=== PATIENT | male | born 1975 | race Caucasian/White ===

== ENCOUNTER 2023-12-12 22:46 | Emergency (ER) | payer OTHER ==
[2023-12-12] MEDS ORDERED: VERSED 5 MG/5 ML IV ONE (22:47)
[2023-12-12] MEDS ORDERED: Zemuron 100 MG/10 ML IV ONE (22:47)
[2023-12-12] MEDS: XYLOCAINE 1% HCL 20 ML MDV IJ ONE (22:50)
[2023-12-12] MEDS ORDERED: Sodium Chloride 0.9% 1000 ML 1,000 ML ONE (22:57)
[2023-12-12] MEDS ORDERED: Sodium Chloride 0.9% 250 ML 0 ML IV ONE (23:14)
[2023-12-12] MEDS ORDERED: Versed 50 MG/ 10 Ml MDV ONE ×2 (23:14→23:24)
[2023-12-12 23:15] LABS: Absolute Neutrophil Ct (ANC) 3.49 x10^3/uL (1.78-5.38); BASOPHIL % 0.4 % (0.2-1.2); Basophil (Absolute #) 0.02 x10^3/uL (0.01-0.08); Eosinophil % 0.6 % (0.8-7.0); Eosinophil (Absolute #) 0.03 x10^3/uL (0.04-0.54); Hematocrit 24.8 % (40.1-51.0); Hemoglobin 8.1 g/dL (13.7-17.5); Lymphocytes % 19.1 % (21.8-53.1); Mean Cell Volume 97.3 fL (79.0-92.2); Mean Corpuscular Hemoglobin 31.8 pg (25.7-32.2); Mean Corpuscular Hgb Concent. 32.7 g/dL (32.3-36.5); Mean Platelet Volume 9.7 fL (9.4-12.4); Monocyte (Absolute #) 0.27 x10^3/uL (0.30-0.82); Monocytes % 5.7 % (5.3-12.2); Neutrophil % 74.2 % (34.0-67.9); Platelet Count 175 x10^3/uL (163-337); Red Blood Count 2.55 x10^6/uL (4.63-6.08); Red Cell Distribution Width 11.9 % (11.6-14.4); White Blood Count 4.7 x10^3/uL (4.23-9.07)
[2023-12-12 23:22] LABS: Appearance Cloudy (Clear); Bacteria None Seen /HPF (None Seen); Bilirubin Small (Negative); Blood Negative (Negative); Epithelial Cells None Seen /HPF (None Seen); Glucose, Urine Negative (Negative); Ketones 80 (Negative); Leukocyte Esterase Small (Negative); Nitrite Negative (Negative); Ph 5.5 (4.6-8.0); Protein,Urine Dip 30 (Negative); RBC 0-2 /HPF (0-5); Specific Gravity >=1.030 (1.005-1.030)
[2023-12-12] MEDS ORDERED: Sodium Chloride 0.9% 250 ML 250 ML IV ONE (23:24)
--- NOTE | 2023-12-12 23:33 | ERPHSYRPT ---
- History of Present Illness Time Seen by Provider: 12/12/23 22:50 Source: patient, EMS Exam Limitations: clinical condition Physician History: This is a 48-year-old white male patient who is a resident at a local halfway and was brought into the emergency department by the bead trimmer service secondary to a suicide attempt with cutting both sides of his neck with a sharp razor blade and's swallowing to batteries. He also stated that he swallowed the razor blade after cutting himself. Patient had significant blood loss at the scene and had pressure held to the sites with a cervical collar. Patient did not fall or hit his head or have any neck trauma. The cervical collar was only to hold the bandages in place with pressure circumferentially. Additional history was provided by the security at the bedside from the halfway as well as the paramedics. Patient has no known drug allergies. The security at the halfway knows this patient well and stated that earlier in the week he did swallow a razor blade and passed it rectally during the week. Patient states that he wants to kill himself. Timing/Duration: today Severity: moderate Associated Symptoms: denies symptoms Travel Risk - International Travel Have you traveled outside of the country in past 3 weeks: No - Emerging Infectious Disease Are you exhibiting symptoms associated with any current EIDs: No - Review of Systems Constitutional: No Symptoms Eyes: No Symptoms Ears, Nose, & Throat: No Symptoms Respiratory: No Symptoms Cardiac: No Symptoms Abdominal/Gastrointestinal: No Symptoms Genitourinary Symptoms: No Symptoms Musculoskeletal: No Symptoms Skin: No Symptoms Neurological: No Symptoms Psychological: Other (Suicidal attempt) Hematologic/Lymphatic: No Symptoms Immunological/Allergic: No Symptoms All Other Systems: Reviewed and Negative - Past Medical History Pertinent Past Medical History: No (Unsure/unclear) - Past Surgical History Past Surgical History: No (Sure/unclear) - Physical Exam General Appearance: mild distress, alert, anxiety Eye Exam: PERRL/EOMI, eyes nml inspection Ears, Nose, Throat Exam: normal ENT inspection, moist mucous membranes, other (No visible oropharyngeal lacerations or accumulation of blood in the oral cavity on visual inspection) Neck Exam: other (There are two 5 cm skin lacerations in total to the lateral aspect of his neck bilaterally. No obvious subcutaneous hematoma. No crepitance. The left skin laceration site appears to penetrate the skin to the subQ layer while the R side penetrates through the subQ layer. Venous blood Bilat) Respiratory Exam: normal breath sounds, lungs clear, airway intact, No chest tenderness, No respiratory distress Cardiovascular Exam: tachycardia Gastrointestinal/Abdomen Exam: soft, normal bowel sounds, No tenderness, No guarding Rectal Exam: not done Back Exam: normal inspection, normal range of motion, No CVA tenderness, No vertebral tenderness Extremity Exam: normal inspection, normal range of motion, pelvis stable Neurologic Exam: oriented x 3, cooperative, isotope technician II-XII nml as tested, confusion, slurred speech, other (Slurred speech) - Course Nursing assessment & vital signs reviewed: Yes Ordered Tests: Active Orders 24 hr Category Date Time Status CHEST 1 VIEW (PORTABLE) Routine Exams 12/12/23 23:01 Ordered KUB Routine Exams 12/12/23 23:01 Ordered NECK SOFT TISSUE Routine Exams 12/12/23 23:01 Ordered CBC W DIFF Routine Lab 12/12/23 23:00 Completed CMP Routine Lab 12/12/23 23:00 Received ETHYL ALCOHOL Routine Lab 12/12/23 23:00 Received UA W/RFX UR CULTURE Routine Lab 12/12/23 23:00 Received Urine Triage Profile Routine Lab 12/12/23 23:00 Received Medication Summary Discontinued Medications Generic Name Dose Route Start Last Admin Trade Name Genesis PRN Reason Stop Dose Admin Sodium Chloride Confirm 12/12/23 22:57 Sodium Chloride 0.9% 1000 Ml Administered 12/12/23 22:58 Dose 1,000 mls @ ud .ROUTE .STK-MED ONE Sodium Chloride Confirm 12/12/23 23:14 Sodium Chloride 0.9% 250 Ml Administered 12/12/23 23:15 Dose 250 mls @ ud IV .STK-MED ONE Midazolam HCl Confirm 12/12/23 23:14 Midazolam Hcl 50 Mg/10 Ml Vial Administered 12/12/23 23:15 Dose 50 mg .ROUTE .STK-MED ONE Lab/Rad Data: Laboratory Result Diagrams 12/12/23 23:00 Laboratory Results 12/12/23 Range/Units 23:00 WBC 4.7 (4.23-9.07) x10^3/uL RBC 2.55 L (4.63-6.08) x10^6/uL Hgb 8.1 L (13.7-17.5) g/dL Hct 24.8 L (40.1-51.0) % MCV 97.3 H (79.0-92.2) fL MCH 31.8 (25.7-32.2) pg MCHC 32.7 (32.3-36.5) g/dL RDW 11.9 (11.6-14.4) % Plt Count 175 (163-337) x10^3/uL MPV 9.7 (9.4-12.4) fL Gran % 74.2 H (34.0-67.9) % Immature Gran % (Auto) 0.0 L (0.001-0.429) % Nucleat RBC Rel Count 0.0 (0.00-0.2) % Eos # (Auto) 0.03 L (0.04-0.54) x10^3/uL Immature Gran # (Auto) 0.00 L (0.001-0.031) x10^3u/L Absolute Lymphs (auto) 0.90 L (1.32-3.57) x10^3/uL Absolute Monos (auto) 0.27 L (0.30-0.82) x10^3/uL Absolute Nucleated RBC 0.00 (0.00-0.012) x10^3u/L Lymphocytes % 19.1 L (21.8-53.1) % Monocytes % 5.7 (5.3-12.2) % Eosinophils % 0.6 L (0.8-7.0) % Basophils % 0.4 (0.2-1.2) % Absolute Granulocytes 3.49 (1.78-5.38) x10^3/uL Basophils # 0.02 (0.01-0.08) x10^3/uL - Progress Progress: re-examined Progress Note: 12/12/23 23:34 My medical decision making and the assignment of high complexity of this patient's medical issue today is based on review of the patient's past medical history, review the patient's medication list, reviewed patient drug allergy list, history present illness and physical findings on examination. The workup included anterior neck, PA chest, KUB x-rays to evaluate for intrathoracic or intra-abdominal foreign body. We also ordered a CBC, CMP, urine drug screen, urine drug triage and arterial blood gas. We placed a Bueno catheter as well. As we were evaluating this patient, his initial vital signs show tachycardia with a fairly normal blood pressure. His oxygen saturation was in the 95 to 100% range. However, the CO2 monitor was showing rising CO2 levels and the patient was becoming more lethargic. Therefore, we opted to go ahead and mechanically ventilate him. RT used a glide a scope to intubate this patient and a 7-1/2 ET tube was placed without difficulty under visualization. The post chest x-ray shows the tip of the ET tube above the bifurcation. I interpreted this x-ray on my own. The KUB film shows no evidence of any obstruction or obvious free air. There appears to be 4 AAA batteries within the lumen of the intestinal tract. Appears to be beyond the gastric lumen. I do not see evidence of a razor blade. I am assuming this is radiopaque type of razor blade. I loosely approximated the 2 laceration sites to help provide some hemostasis. I realized that these wounds will be explored higher level of care but this way that the patient has his area rate controlled and we can place pressure dressings on the sites. [facility] [place] [facility] accepted this patient. The specific trauma surgeon excepting this patient is Dr. Alexander Mancilla. We are awaiting the flight crew to transport this patient. Counseled pt/family regarding: lab results, diagnosis, rad results Medical Desision Making - Independent Historian Additional History obtained from: Milling Machine Set Up Operator/EMT - Diagnostic Testing Diagnostic test were ordered, analyzed, and reviewed by me: Yes Radiological Interpretation: Interpreted by me - Risk of complications The pt has a high risk of morbidity or mortality based on: Decision regarding hospitilization or escalation of hosp level of care - Departure Departure Disposition: Transfer Clinical Impression: Suicide attempt, Simple laceration of neck, Intentional ingestion of batteries Condition: Serious Critical Care Time: Yes Critical Care Time(excluding separately billable procedures): Critical 30-74 mins (40 minutes)
[2023-12-12 23:36] LABS: Amphetamine,Urine NEGATIVE (NEGATIVE); Barbiturate,Urine NEGATIVE (NEGATIVE); Benzodiazepine,Urine NEGATIVE (NEGATIVE); Cocaine,Urine NEGATIVE (NEGATIVE); Methadone,Urine NEGATIVE (NEGATIVE); Opiate,Urine NEGATIVE (NEGATIVE); PCP,Urine NEGATIVE (NEGATIVE); THC,Urine NEGATIVE (NEGATIVE)
[2023-12-12] MEDS ORDERED: ROCEPHIN 1 GM / 100 ML NaCl 1 GM/100 ML IVPB IV ONE (23:47)
[2023-12-12] MEDS ORDERED: Adacel Vial IM ONE (23:54)
[2023-12-13 00:07] LABS: ABO TYPING O; Antibody Screen NEGATIVE (NEGATIVE); RH TYPING POSITIVE
[2023-12-13] MEDS ORDERED: Propofol 1000 mg/100 ml Bottle 100 ML IV ONE (00:11)
[2023-12-13] MEDS ORDERED: Propofol 1000 mg/100 ml Bottle 100 ML IV PRN (00:11)
[2023-12-13 00:13] VITALS: BP 113/87; PULSE 70; RESP 20; TEMP 97.2; O2SAT 99
[2023-12-13 00:15] LABS: A-aADO2 344; ABG HEMOGLOBIN 14.5; ABG POTASSIUM 3.9 (3.5-5.1); ABG SITE RIGHT RADIAL; ALLEN TEST OK? YES; ARTERIAL BLOOD GAS BASE EXCESS -1.7 (-2.0-2.0); ARTERIAL BLOOD GAS FIO2 100 %; ARTERIAL BLOOD GAS PCO2 34 mmHg (35-45); ARTERIAL BLOOD GAS PO2 327 mmHg (75-100); ARTERIAL BLOOD GAS pH 7.42 (7.35-7.45); HCO3- 22.1 (22-28); HGB O2 SAT 97.9 g/dF (94-100); Methhemoglobin 1.1 % (1.4-1.5); paO2 pAO1 0.49
[2023-12-13 00:25] LABS: ALBUMIN 3.8 g/dL (3.5-5.0); ALKALINE PHOSPHATASE 82 U/L (38-126); ANION GAP 12.9 MEQ/L (5-15); BLOOD UREA NITROGEN 14 mg/dL (9-20); CHLORIDE 107 mmol/L (98-107); Calcium 8.3 mg/dL (8.4-10.2); Carbon Dioxide 23 mmol/L (22-30); ETHYL ALCOHOL < 10 mg/dL (0-10); Glucose 105 mg/dL (74-106); Potassium 3.8 mmol/L (3.5-5.1); SGOT/AST 19 U/L (17-59); SGPT/ALT 14 U/L (0-50); SODIUM 139 mmol/L (135-145); Total Protein 6.7 g/dL (6.3-8.2)
--- NOTE | 2023-12-13 03:15 | XRAY ---
CLINICAL HISTORY: FB COMPARISON: No prior studies available for comparison. TECHNIQUE: X-ray images of the chest were obtained in anterioposterior AP portable projection. FINDINGS: Endotracheal tube insitu with tip located 3.7cm from myles. Pulmonary Parenchyma: Prominent hilar and perihilar vascular markings. Possible mild left lower zone infiltrate. No evidence of pleural effusion or pleural thickening. Heart and Mediastinum: Heart size cannot be commented due to AP projection. No mediastinal widening or masses. No hilar or mediastinal lymphadenopathy. Bony Thorax: Old-headed fracture mid shaft of left clavicle. The bony thorax appears intact without fractures or deformities. Soft Tissues: Soft tissues overlying the chest wall are unremarkable. IMPRESSION: 1. Endotracheal tube insitu with tip located 3.7cm from myles. 2. Prominent hilar and perihilar vascular markings, suggestive of mild pulmonary congestion. 3. Possible mild infiltrate left lower zone. 4. No Foreign body was noted in chest area. Electronically Signed by: Elissa Bennett MD. (12/13/2023 03:11:45 EDT)
--- NOTE | 2023-12-13 03:22 | XRAY ---
CLINICAL HISTORY: FB COMPARISON: No prior studies are available for comparison. TECHNIQUE: X-rays of the soft tissue neck AP view were performed. FINDINGS: Alignment: Cervical spine alignment is normal. Vertebral Bodies and Intervertebral Discs Spaces: Visualized vertebral bodies are normal. Soft Tissues: Visualized soft tissue structures of the neck appear unremarkable. There is no abnormal mass. The paraspinal area and soft tissue appear within normal limits. Additional Findings: Tracheostomy tube insitu. Old healed fracture mid shaft of the left clavicle. IMPRESSION: 1. Soft tissue structures of the neck appear unremarkable in anterioposterior projection. Other views are suggested if clinically indicated. 2. Tracheostomy tube insitu. 3. Advised CT scan if clinically required. 4. No other foreign body shadow seen in the visualized neck areas. Electronically Signed by: Elissa Bennett MD. (12/13/2023 03:17:42 EDT)
--- NOTE | 2023-12-13 03:46 | XRAY ---
CLINICAL HISTORY: FB COMPARISON: No prior studies are available for comparison. TECHNIQUE: X-ray images of the abdomen were obtained in AP supine and upright positions. FINDINGS: Four metallic cylindrical objects noted on the left side of the abdomen, similar in size and shape, each measuring 4.5 x 1.1cm, likely ingested batteries. And another two smaller ones located in the left upper quadrant likely representing blades. Diffusly dilated small bowel was noted throughout the abdomen, further CT study is suggested. Soft Tissues: Soft tissues of the abdomen appear normal without evidence of masses or calcifications. The liver, spleen, and kidneys are of normal size and position. IMPRESSION: 1. Four metallic cylindrical objects noted on the left side of the abdomen, similar in size and shape, each measuring 4.5 x 1.1cm, likely ingested batteries. 2. And another two smaller located in the left upper quadrant likely representing blades. 3. Diffusly dilated small bowel was noted throughout the abdomen, further CT study is suggested. Electronically Signed by: Elissa Bennett MD. (12/13/2023 03:41:58 EDT)
== END 2023-12-13 00:31 | disposition short-term general hospital (02) ==
LOC: ED 22:46
DX: T14.91XA Suicide attempt, initial encounter (principal); S11.81XA Laceration without foreign body of other specified part of neck, initial encounter; X78.8XXA Intentional self-harm by other sharp object, initial encounter; Y92.149 Unspecified place in prison as the place of occurrence of the external cause; T18.3XXA Foreign body in small intestine, initial encounter; W44.A9XA Other batteries entering into or through a natural orifice, initial encounter
CPT/HCPCS: 31500; 36000; 36415; 36600; 51702; 70360; 71045; 74018; 80053; 80307; 81001; 82077; 82375; 82803; 85025; 86850; 86900; 86901; 87086; 96372; 99285; 99291; J2250; J2704